=== PATIENT | male | born 1990 | race Two or more races ===

== ENCOUNTER 2020-02-02 11:47 | Emergency (ER) | payer OTHER ==
[~2020-02-02] VITALS: Ht 182.9 cm; Wt 138.6 kg
--- NOTE | 2020-02-02 12:27 | NUR ---
PT AMB TO BR WITH STEADY GAIT. URINE CUP GIVEN.
--- NOTE | 2020-02-02 12:27 | NUR ---
FIRST CONTACT WITH PT. PT C/O GROIN RASH X 3 DAYS. PT ALSO C/O INTERMITTANT PAIN WITH VOIDING. PT DENIES ANY OTHER SX. PT'S AOX4. RESPS EVEN AND UNLABORED. BP/SPO2 MONITORS IN PLACE. CALL LIGHT WITHIN REACH.
--- NOTE | 2020-02-02 12:43 | NUR ---
PT BACK TO ROOM FROM BR. PT PROVIDED URINE SAMPLE.
--- NOTE | 2020-02-02 13:05 | NUR ---
UA SENT AT THIS TIME.
[2020-02-02] MEDS ORDERED: CEFTRIAXONE 250 MG ONE (13:09)
[2020-02-02] MEDS ORDERED: AZITHROMYCIN 250 MG TABLET ONE (13:09)
--- NOTE | 2020-02-02 13:14 | NUR ---
PT MEDICATED PER EMAR. PT TOLERATED WELL.
[2020-02-02] MEDS ORDERED: CEFTRIAXONE 250 MG IM ONE (13:30)
[2020-02-02] MEDS ORDERED: AZITHROMYCIN 500 MG TABLET PO ONE (13:30)
[2020-02-02 13:35] LABS: MICROSCOPIC AUTO
[2020-02-02] MEDS ORDERED: BICILLIN-LA 2,400,000 UNITS/4 ML IM ONE (14:00)
[2020-02-02 14:24] VITALS: BP 147/84
--- NOTE | 2020-02-02 14:28 | NUR ---
PT MEDICATED PER EMAR. PT TOLERATED WELL. PT'S AOX4. RESPS EVEN AND UNLABORED.
--- NOTE | 2020-02-02 15:08 | NUR ---
pa at bedside to explain all results at this time. awaiting dc.
--- NOTE | 2020-02-02 15:29 | NUR ---
Patient given discharge instructions and they have confirmed that they understand the instructions. Patient ambulatory with steady gait.
== END 2020-02-02 15:30 | disposition home or self-care (01) ==
LOC: ED 13:29
DX: R30.0 Dysuria (principal); R21 Rash and other nonspecific skin eruption; Z20.2 Contact with and (suspected) exposure to infections with a predominantly sexual mode of transmission
CPT/HCPCS: 36415; 81001; 86592; 87086; 87491; 87529; 87591; 96372; 99284; J0561; J0696